=== PATIENT | female | born 1955 ===

== ENCOUNTER → 2022-04-13 13:38 | Outpatient (BNVA) | payer MEDICARE, BC, SELFPAY | PROVIDERS: Visit Provider Anesthesiology Pain Medicine | DX: M54.12 Radiculopathy, cervical region (principal) | CPT/HCPCS: 64490; 64491; 64492; J3490 ==

== ENCOUNTER → 2022-04-27 13:47 | Outpatient (BNVA) | payer MEDICARE, BC, SELFPAY | PROVIDERS: Visit Provider Anesthesiology Pain Medicine | DX: M47.812 Spondylosis without myelopathy or radiculopathy, cervical region | CPT/HCPCS: 64490; 64491; 64492; J3490 ==

== ENCOUNTER → 2022-05-16 10:34 | Outpatient (BNVA) | payer MEDICARE, BC, SELFPAY | PROVIDERS: Visit Provider Anesthesiology Pain Medicine | DX: M54.16 Radiculopathy, lumbar region (principal); M47.812 Spondylosis without myelopathy or radiculopathy, cervical region; M54.9 Dorsalgia, unspecified; G89.29 Other chronic pain | CPT/HCPCS: 72110; 99214 ==

== ENCOUNTER → 2022-08-16 09:20 | Outpatient (BNVA) | payer MEDICARE, BC, SELFPAY | PROVIDERS: Visit Provider Anesthesiology Pain Medicine | DX: G89.29 Other chronic pain (principal); M47.812 Spondylosis without myelopathy or radiculopathy, cervical region | CPT/HCPCS: 99214 ==

== ENCOUNTER → 2022-11-16 09:56 | Outpatient (BNVA) | payer MEDICARE, BC, SELFPAY | PROVIDERS: Visit Provider Anesthesiology Pain Medicine | DX: G89.29 Other chronic pain; M47.812 Spondylosis without myelopathy or radiculopathy, cervical region | CPT/HCPCS: 99214 ==

== ENCOUNTER → 2023-05-17 09:31 | Outpatient (BNVA) | payer MEDICARE, BC, SELFPAY | PROVIDERS: Visit Provider Anesthesiology Pain Medicine | DX: G89.29 Other chronic pain; M47.812 Spondylosis without myelopathy or radiculopathy, cervical region | CPT/HCPCS: 99214 ==

== ENCOUNTER → 2023-07-19 09:55 | Outpatient (BNVA) | payer MEDICARE, BC, SELFPAY | PROVIDERS: Visit Provider Anesthesiology Pain Medicine | DX: G89.29 Other chronic pain; M47.812 Spondylosis without myelopathy or radiculopathy, cervical region | CPT/HCPCS: 99214 ==

== ENCOUNTER → 2024-09-04 13:18 | Outpatient (BNVA) | payer MEDICARE, BC, SELFPAY | PROVIDERS: PCP Family Medicine; Visit Provider Podiatrist Foot & Ankle Surgery | DX: L84 Corns and callosities (principal); M77.42 Metatarsalgia, left foot; M21.622 Bunionette of left foot | CPT/HCPCS: 99204 ==

== ENCOUNTER 2024-11-14 10:04 | Outpatient (CLI) | payer MEDICARE, BC, SELFPAY | END 2024-11-14 10:05 | disposition home or self-care (01) | LOC: SPT 10:06 | PROVIDERS: PCP Family Medicine; Visit Provider Podiatrist Foot & Ankle Surgery | DX: Z46.89 Encounter for fitting and adjustment of other specified devices (principal); M77.42 Metatarsalgia, left foot | CPT/HCPCS: L3030 ==

== ENCOUNTER → 2025-02-05 10:29 | Outpatient (BNVA) | payer MEDICARE, BC, SELFPAY | PROVIDERS: PCP Family Medicine; Visit Provider Podiatrist Foot & Ankle Surgery | DX: M72.2 Plantar fascial fibromatosis (principal); L84 Corns and callosities; M77.42 Metatarsalgia, left foot; M21.622 Bunionette of left foot | CPT/HCPCS: 20550; 20551; 99213; J1100; J3301; J9999 ==